=== PATIENT | female | born 1970 | race Hispanic/Latino ===

== ENCOUNTER 2016-04-13 10:47 | Inpatient (IN) | payer OTHER ==
--- NOTE | 2016-04-13 11:56 | Emergency Department Report ---
Chief Complaint: Dyspnea/Respdistress Stated Complaint: ANAM/LEG PAIN Time Seen by Provider: 04/13/16 11:43 - HPI History of Present Illness: 44-year-old female presents today with shortness of breath 1 week. Patient states her shortness of breath is worse when she lays down. Positive for history of CVA, anemia, accelerated heart rate, increased disease who states has been out of her medication for 8 months. Also complaining of right leg edema and pain 3 days. Positive for family history blood cough. Positive for fever on and off 4 months. - ROS Review of Systems: Per HPI - Exam Vital Signs: Vital Signs 04/13/16 10:50 Temperature 97.5 F L Pulse Rate 111 H Blood Pressure 134/99 O2 Sat by Pulse 100 Oximetry Physical Exam: General: 44-year-old female in mild to moderate distress. CV: Tachycardic. Regular rhythm. Lungs: Clear to auscultation bilaterally. Right lower extremity: Medial calf tenderness to palpation. No deformity or ecchymosis noted. Peripheral pulses intact. MSE screening note: Focused history and physical exam performed. Due to findings the following was ordered: ED Disposition for MSE Condition: Stable
--- NOTE | 2016-04-13 13:13 | XRay Report ---
ROUTINE CHEST, TWO VIEWS: HISTORY: Dyspnea. The trachea, heart, mediastinal contour, lung chauhan and bony thorax are unremarkable. IMPRESSION: No acute cardiopulmonary process.
[2016-04-13 13:32] LABS: Basophils % (Auto) 1.5 % (0.0-1.8); Eosinophils % (Auto) 2.3 % (0.0-4.3); Mean Corpuscular HGB Conc 30 % (30-34); Platelet Count 457 K/mm3 (140-440); Red Blood Count 4.42 M/mm3 (3.65-5.03); White Blood Count 11.9 K/mm3 (4.5-11.0)
[2016-04-13 13:33] LABS: Hematocrit 28.5 % (30.3-42.9); Hemoglobin 8.4 gm/dl (10.1-14.3); Mean Corpuscular Hemoglobin 19 pg (28-32); Mean Corpuscular Volume 65 fl (79-97)
[2016-04-13 13:42] LABS: INR 1.03 (0.87-1.13)
[2016-04-13 13:43] LABS: Partial Thromboplastin Time 22.7 Sec. (24.2-36.6)
[2016-04-13 14:16] LABS: Anion Gap 19 mmol/L; Blood Urea Nitrogen 6 mg/dL (7-17); Calcium 8.9 mg/dL (8.4-10.2); Carbon Dioxide 24 mmol/L (22-30); Chloride 104.3 mmol/L (98-107); Glucose 103 mg/dL (65-100); Potassium 4.9 mmol/L (3.6-5.0); Sodium 142 mmol/L (137-145)
[2016-04-13 14:22] LABS: Creatine Kinase 42 units/L (30-135)
[2016-04-13 14:23] LABS: Creatine Kinase MB < 1.0 ng/mL (0.0-4.0)
[2016-04-13] MEDS ORDERED: DILAUDID IV ONE (23:10)
[2016-04-13] MEDS ORDERED: ZOFRAN IV ONE (23:10)
[2016-04-13] MEDS ORDERED: NACL 0.9% 1000 ML 1,000 ML IV ONE (23:10)
[2016-04-13] MEDS ORDERED: CLEOCIN 600 MG/50 mL 50 ML IV ONE (23:10)
[2016-04-13] MEDS ORDERED: TESSALON PERLES PO ONE (23:11)
--- NOTE | 2016-04-13 23:33 | Emergency Department Report ---
ED Shortness of Breath HPI - General Chief Complaint: Dyspnea/Respdistress Stated Complaint: ANAM/LEG PAIN Time Seen by Provider: 04/13/16 11:43 Source: patient Mode of arrival: Ambulatory Limitations: No Limitations - History of Present Illness Initial Comments: 45-year-old female with a past medical history of obesity, anemia, CVA, and Graves' disease presents to the hospital complains of shortness of breath 1 week. Patient states she has had dyspnea on exertion. She complains of chest pressure when lying flat throughout the night. Just complains of right leg pain and swelling and expresses concern for DVT. Leg pain is constant, throbbing, rated 10/10 intensity. Worse with Palpation and movement. No alleviating factors. Patient has had a dry cough with intermittent fever times one month. Patient has not been on any medications 8 months. PMD: None - Related Data Home Medications Medication Instructions Recorded Confirmed Last Taken Docusate Sodium [Colace] 100 mg PO QDAY PRN 07/30/14 10/06/14 Unknown Promethazine [Phenergan TAB] 25 mg PO BID 10/06/14 10/06/14 10/06/14 Previous Rx's Medication Instructions Recorded Last Taken Type ALPRAZolam [Xanax TAB] 0.5 mg PO Q8HR #30 tablet 07/11/14 10/06/14 Rx Aspirin [Aspirin BABY CHEW TAB] 81 mg PO QDAY #30 tab.chew 07/11/14 10/06/14 Rx FLUoxetine [PROzac] 20 mg PO QDAY #30 capsule 07/11/14 10/06/14 Rx Ferrous Sulfate [Feosol 325 MG tab] 325 mg PO TID #90 tablet 07/11/14 10/06/14 Rx Omeprazole (Nf) [PriLOSEC (Nf)] 20 mg PO DAILY #30 capsule. 07/11/14 10/06/14 Rx Simvastatin [Zocor TAB] 20 mg PO QHS #30 tablet 07/11/14 10/05/14 Rx HYDROcodone/APAP 5-325 [[place] 1 each PO Q6HR PRN #20 tablet 07/30/14 10/06/14 Rx 5/325] medroxyPROGESTERone ACETATE 10 mg PO QDAY #10 tablet 07/30/14 10/06/14 Rx [Provera] traMADol [Ultram 50 MG tab] 50 mg PO Q6HR PRN #10 tablet 08/26/15 Unknown Rx Allergies Allergy/AdvReac Type Severity Reaction Status Date / Time tetanus & diphtheria toxoids Allergy Shortness Verified 06/12/13 22:55 [Tetanus&Diphtheria Toxoid] of Breath ED Review of Systems ROS: Stated complaint: ANAM/LEG PAIN Other details as noted in HPI Comment: All other systems reviewed and negative Other: Constitutional: No fevers chills or weight loss Eyes: No eye pain visual changes or discharge ENT: No ear pain or throat pain Neck: Denies pain Respiratory: As per HPI Cardiovascular: Chest pain with breathing report GI: Denies abdominal pain, nausea, vomiting, diarrhea : Denies dysuria Musculoskeletal: Right leg pain Skin: Right leg redness Neurologic: Denies headache, numbness, weakness Psychiatric: Denies suicidal ideation, hallucinations Hematological/lymphatic: Denies easy bruising, lymphadenopathy ED Past Medical Hx - Past Medical History Hx Hypertension: Yes Hx CVA: Yes (Apr 2014) Hx Heart Attack/AMI: Yes (June 2013) Hx Congestive Heart Failure: No Hx Diabetes: No Hx Asthma: No Hx COPD: No Additional medical history: TIA. Graves Disease - Surgical History Additional Surgical History: tonsillectomy, D&C, tubal,HEART CATH 2013 - Social History Smoking Status: Never Smoker Substance Use Type: None - Medications Home Medications: Home Medications Medication Instructions Recorded Confirmed Last Taken Type ALPRAZolam [Xanax TAB] 0.5 mg PO Q8HR #30 tablet 07/11/14 10/06/14 10/06/14 Rx Aspirin [Aspirin BABY CHEW TAB] 81 mg PO QDAY #30 tab.chew 07/11/14 10/06/14 Rx FLUoxetine [PROzac] 20 mg PO QDAY #30 capsule 07/11/14 10/06/14 10/06/14 Rx Ferrous Sulfate [Feosol 325 MG tab] 325 mg PO TID #90 tablet 07/11/14 10/06/14 10/06/14 Rx Omeprazole (Nf) [PriLOSEC (Nf)] 20 mg PO DAILY #30 capsule. 07/11/14 10/06/14 10/06/14 Rx Simvastatin [Zocor TAB] 20 mg PO QHS #30 tablet 07/11/14 10/06/1415 Rx Docusate Sodium [Colace] 100 mg PO QDAY PRN 07/30/14 10/06/14 Unknown History HYDROcodone/APAP 5-325 [[place] 1 each PO Q6HR PRN #20 tablet 07/30/14 10/06/14 Rx 5/325] medroxyPROGESTERone ACETATE 10 mg PO QDAY #10 tablet 07/30/14 10/06/14 10/06/14 Rx [Provera] Promethazine [Phenergan TAB] 25 mg PO BID 10/06/14 10/06/14 10/06/14 History traMADol [Ultram 50 MG tab] 50 mg PO Q6HR PRN #10 tablet 08/26/15 Unknown Rx ED Physical Exam - General Limitations: No Limitations - Other Other exam information: General: No limitations, patient is alert in no acute distress Head exam: Atraumatic, normocephalic Eyes exam: Normal appearance, pupils equal reactive to light, extraocular movements intact ENT: Moist mucous membrane, normal oropharynx Neck exam: Normal inspection, full range of motion, no meningismus nontender Respiratory exam: Clear to auscultation bilateral, no wheezes, rales, crackles, frequent dry cough noted on exam Cardiovascular: Normal rate and rhythm, normal heart sounds Abdomen: Soft, nondistended, and nontender, with normal bowel sounds, no rebound, or guarding Extremity: Full range of motion, pain and tenderness to right calf with 10 x 7 cm area of erythema and warmth. 2+ DP pulse Back: Normal Inspection, full range of motion, no tenderness Neurologic: Alert, oriented x3, cranial nerves intact, no motor or sensory deficit Psychiatric: normal affect, normal mood Skin: Warm, dry, intact ED Course Vital Signs 04/13/16 04/14/16 10:50 00:21 Temperature 97.5 F L 97.7 F Pulse Rate 111 H 95 H Respiratory 15 Rate Blood Pressure 134/99 Blood Pressure 124/80 [Left] O2 Sat by Pulse 100 99 Oximetry - Reevaluation(s) Reevaluation #1: 04/14/16 01:55 Pain improved in ed. Given dilaudid, zofran, ns, clinda, and tessalon perles 04/14/16 01:55 ED Medical Decision Making - Lab Data Result diagrams: 04/13/16 13:09 04/13/16 13:09 Lab Results 04/13/16 04/13/16 04/13/16 Range/Units 13:09 13:09 13:09 WBC 11.9 H (4.5-11.0) K/mm3 RBC 4.42 (3.65-5.03) M/mm3 Hgb 8.4 L (10.1-14.3) gm/dl Hct 28.5 L (30.3-42.9) % MCV 65 L (79-97) fl MCH 19 L (28-32) pg MCHC 30 (30-34) % RDW 20.0 H (13.2-15.2) % Plt Count 457 H (140-440) K/mm3 Lymph % (Auto) 28.9 (13.4-35.0) % [place] % (Auto) 3.4 (0.0-7.3) % Eos % (Auto) 2.3 (0.0-4.3) % Baso % (Auto) 1.5 (0.0-1.8) % Lymph # 3.4 (1.2-5.4) K/mm3 [place] # 0.4 (0.0-0.8) K/mm3 Eos # 0.3 (0.0-0.4) K/mm3 Baso # 0.2 H (0.0-0.1) K/mm3 Seg Neutrophils % 63.9 (40.0-70.0) % Seg Neutrophils # 7.6 (1.8-7.7) K/mm3 PT 13.4 (12.2-14.9) Sec. INR 1.03 (0.87-1.13) APTT 22.7 L (24.2-36.6) Sec. D-Dimer (0-234) ng/mlDDU Sodium 142 (137-145) mmol/L Potassium 4.9 (3.6-5.0) mmol/L Chloride 104.3 (98-107) mmol/L Carbon Dioxide 24 (22-30) mmol/L Anion Gap 19 mmol/L BUN 6 L (7-17) mg/dL Creatinine 0.8 (0.7-1.2) mg/dL Estimated GFR > 60 ml/min BUN/Creatinine Ratio 7.50 % Glucose 103 H (65-100) mg/dL Calcium 8.9 (8.4-10.2) mg/dL Total Creatine Kinase (30-135) units/L CK-MB (CK-2) (0.0-4.0) ng/mL CK-MB (CK-2) Rel Index (0-4) Troponin T (0.00-0.029) ng/mL 04/13/16 04/13/16 Range/Units 13:09 13:09 WBC (4.5-11.0) K/mm3 RBC (3.65-5.03) M/mm3 Hgb (10.1-14.3) gm/dl Hct (30.3-42.9) % MCV (79-97) fl MCH (28-32) pg MCHC (30-34) % RDW (13.2-15.2) % Plt Count (140-440) K/mm3 Lymph % (Auto) (13.4-35.0) % [place] % (Auto) (0.0-7.3) % Eos % (Auto) (0.0-4.3) % Baso % (Auto) (0.0-1.8) % Lymph # (1.2-5.4) K/mm3 [place] # (0.0-0.8) K/mm3 Eos # (0.0-0.4) K/mm3 Baso # (0.0-0.1) K/mm3 Seg Neutrophils % (40.0-70.0) % Seg Neutrophils # (1.8-7.7) K/mm3 PT (12.2-14.9) Sec. INR (0.87-1.13) APTT (24.2-36.6) Sec. D-Dimer 560.06 H (0-234) ng/mlDDU Sodium (137-145) mmol/L Potassium (3.6-5.0) mmol/L Chloride (98-107) mmol/L Carbon Dioxide (22-30) mmol/L Anion Gap mmol/L BUN (7-17) mg/dL Creatinine (0.7-1.2) mg/dL Estimated GFR ml/min BUN/Creatinine Ratio % Glucose (65-100) mg/dL Calcium (8.4-10.2) mg/dL Total Creatine Kinase 42 (30-135) units/L CK-MB (CK-2) < 1.0 (0.0-4.0) ng/mL CK-MB (CK-2) Rel Index 2.3 (0-4) Troponin T < 0.010 (0.00-0.029) ng/mL - EKG Data -: EKG Interpreted by Me (sinus tach 114) - Radiology Data Radiology results: report reviewed Cxr: naf CT angiogram chest: Single very small linear nonocclusive PE in the subsegmental right lower lobe pulmonary artery branch. Lungs show patchy chronic fibrotic changes or scarring in the posterior left mid and lower lung segment similar to prior exam. Mild atelectasis of the right lobe. New ill- defined partial focal density in the anterior right middle lung with uncertain significance. Small focal infiltrate versus scarring versus atelectasis. - Medical Decision Making Plan to admit patient to the hospital. She has a very small pulmonary embolism with a negative DVT exam of the right leg. Patient, of antibiotics for focal cellulitis given negative Doppler. Patient received Lovenox and will be admitted to the hospital. Heart rate improved below 100 with IV fluids and pain control - Differential Diagnosis PE, bronchitis, pneumonia, cellulitis, DVT, contusion Critical Care Time: No Critical care attestation.: If time is entered above; I have spent that time in minutes in the direct care of this critically ill patient, excluding procedure time. ED Disposition Clinical Impression: Anemia, Pulmonary embolism, Cellulitis of right lower leg, Obesity (BMI 35.0- 39.9 without comorbidity), Pulmonary infiltrate Disposition: OP ADMITTED IP TO THIS HOSP Is pt being admited?: Yes Condition: Stable Time of Disposition: 01:52 (Dr lisa/hosp)
[2016-04-13] MEDS ORDERED: NACL ONE (23:43)
--- NOTE | 2016-04-14 01:40 | Cat Scan Report ---
FINAL REPORT PROCEDURE: CT ANGIO CHEST TECHNIQUE: Computerized axial tomographic angiography of the chest and pulmonary arteries was performed after the IV injection of iodinated nonionic contrast. The image data was postprocessed using maximum intensity projection (MIP) and 2-dimensional multiplanar reformatted (MPR) techniques. The examination is specifically tailored to the evaluation of the pulmonary arteries per clinical request. HISTORY: Shortness of breath. Elevated D-dimer. Attention for pulmonary embolus. Short of breath 786.09, chest pain 786.50 COMPARISON: Prior chest CTA exam of July 30, 2014 FINDINGS: Heart and pericardium: Normal. Thoracic aorta: Normal. Pulmonary vasculature: There is a single small nonocclusive linear filling defect in one subsegmental pulmonary artery branch in the right lower lobe. This is consistent with a small nonobstructive pulmonary embolus. This is seen on images 57-67 of series 3. The remainder the pulmonary arterial tree is clear.. Lymph nodes: There are few nonspecific less than 1 centimeter mediastinal lymph nodes noted. Lungs: There is some mild patchy chronic interstitial scarring in the posterior left mid and lower lung similar to prior exam. However the patchy ground-glass density in the left upper lobe seen on the prior scan is not evident on this current scan. There is mild atelectasis in posterior right lower lobe. There is a nonspecific patchy partially focal somewhat irregular density in the anterior right midlung centered on image 51 of series 3. This is new. This is nonspecific but could be an area of scarring or atelectasis or small focal infiltrate. However its significance is uncertain. Pleural space: No effusion, thickening, or pneumothorax. Musculoskeletal structures: No significant abnormality. Upper abdominal structures: Slightly heterogenous appearing spleen is probably due to contrast flux. The limited visualized structures of the very upper abdomen seen on the lower part of this chest scan show no CT abnormality otherwise. IMPRESSION: 1. There is a single very small linear nonocclusive pulmonary embolus in one subsegmental right lower lobe pulmonary artery branch. The remainder the pulmonary arterial tree appears normal. 2. There is no CT evidence of thoracic aortic dissection. 3. Lungs show some patchy chronic fibrotic change or scarring in the posterior left mid and lower lung similar to prior exam. There is mild atelectasis right lower lobe. There is a small somewhat ill-defined but partially focal density in the anterior right mid lung new from prior exam. The significance of this is uncertain. This could be a small focal infiltrate or some scarring or small focal area of atelectasis. A follow-up chest CT scan in several months time recommended to make sure this resolves and or remains stable and develops no unfavorable change which might indicate a more aggressive process.
[2016-04-14] MEDS ORDERED: LOVENOX SUB-Q ONE (01:46)
--- NOTE | 2016-04-14 03:19 | History and Physical Report ---
History of Present Illness Date of examination: 04/14/16 History of present illness: 45-year-old man with a history of CVA, Graves' disease, obesity comes emergency room with complaint of right leg pain which started 2 days ago. Also complaining of chest pain in the anterior chest. She stated that she felt as if her chest is collapsing, this has been going on since December. The pain is constant, intensity, 7/10, no radiation and she cannot identify exacerbating or relieving factors. Symptoms associated with shortness of breath. Patient also complaining of a cough since December. She has not taken her medication in 8 months Patient denies chest pain, palpitation, abdominal pain, hematochezia, dysuria, frequency, focal weakness, dysarthria, fever chills, polydipsia polyuria, hot or cold intolerance, easy bruisability, or rash or bleeding from mucosal membrane, rhinorrhea, epistaxis, earache, tinnitus, blurry vision, eye discharge , anxiety, depression. Other review of systems negative PAST SURGICAL HISTORY: Tonsillectomy, tubal ligation SOCIAL HISTORY: Pack a day, no alcohol or drugs FAMILY HISTORY: Hypertension Medications and Allergies Allergies Allergy/AdvReac Type Severity Reaction Status Date / Time tetanus & diphtheria toxoids Allergy Shortness Verified 06/12/13 22:55 [Tetanus&Diphtheria Toxoid] of Breath Home Medications Medication Instructions Recorded Confirmed Last Taken Type ALPRAZolam [Xanax TAB] 0.5 mg PO Q8HR #30 tablet 07/11/14 10/06/14 10/06/14 Rx Aspirin [Aspirin BABY CHEW TAB] 81 mg PO QDAY #30 tab.chew 07/11/14 10/06/14 Rx FLUoxetine [PROzac] 20 mg PO QDAY #30 capsule 07/11/14 10/06/14 10/06/14 Rx Ferrous Sulfate [Feosol 325 MG tab] 325 mg PO TID #90 tablet 07/11/14 10/06/14 10/06/14 Rx Omeprazole (Nf) [PriLOSEC (Nf)] 20 mg PO DAILY #30 capsule. 07/11/14 10/06/14 10/06/14 Rx Simvastatin [Zocor TAB] 20 mg PO QHS #30 tablet 07/11/14 10/06/14 10/05/14 Rx Docusate Sodium [Colace] 100 mg PO QDAY PRN 07/30/14 10/06/14 Unknown History HYDROcodone/APAP 5-325 [[place] 1 each PO Q6HR PRN #20 tablet 07/30/14 10/06/14 Rx 5/325] medroxyPROGESTERone ACETATE 10 mg PO QDAY #10 tablet 07/30/14 10/06/14 10/06/14 Rx [Provera] Promethazine [Phenergan TAB] 25 mg PO BID 10/06/14 10/06/14 10/06/14 History traMADol [Ultram 50 MG tab] 50 mg PO Q6HR PRN #10 tablet 08/26/15 Unknown Rx Active Meds: Active Medications Nicotine (Habitrol) 21 mg TD QDAY [place] Exam - Physical Exam Narrative exam: Gen. appearance: Patient lying in bed, no apparent distress HEENT: Normocephalic, atraumatic, pupils equally round and reactive to light, extraocular movement intact, and no sclericterus,. No JVD or thyromegaly or nodule,neck supple, no carotid bruit ,mucous membranes moist, no exudate or erythema Heart: S1, S2, regular rate and rhythm Lungs: Clear to auscultation bilaterally, breathing comfortable Abdomen: Positive bowel sounds, nontender, nondistended, no organomegaly Extremity: Medial right leg, tender, erythematous, swollen, left leg No edema, cyanosis, clubbing Skin: No rash, nodules, warm, dry Neuro: Oriented 3, cranial nerves II-12 intact, speech is fluent, motor and sensory intact - Constitutional Vitals: Temp Pulse Resp BP Pulse Ox 97.7 F 95 H 15 124/80 99 04/14/16 00:21 04/14/16 00:21 04/14/16 00:21 04/14/16 00:21 04/14/16 00:21 Results - Labs CBC & Chem 7: 04/13/16 13:09 04/13/16 13:09 Labs: Abnormal lab results 04/13/16 04/13/16 04/13/16 Range/Units 13:09 13:09 13:09 WBC 11.9 H (4.5-11.0) K/mm3 Hgb 8.4 L (10.1-14.3) gm/dl Hct 28.5 L (30.3-42.9) % MCV 65 L (79-97) fl MCH 19 L (28-32) pg RDW 20.0 H (13.2-15.2) % Plt Count 457 H (140-440) K/mm3 Baso # 0.2 H (0.0-0.1) K/mm3 APTT 22.7 L (24.2-36.6) Sec. D-Dimer (0-234) ng/mlDDU BUN 6 L (7-17) mg/dL Glucose 103 H (65-100) mg/dL 04/13/16 Range/Units 13:09 WBC (4.5-11.0) K/mm3 Hgb (10.1-14.3) gm/dl Hct (30.3-42.9) % MCV (79-97) fl MCH (28-32) pg RDW (13.2-15.2) % Plt Count (140-440) K/mm3 Baso # (0.0-0.1) K/mm3 APTT (24.2-36.6) Sec. D-Dimer 560.06 H (0-234) ng/mlDDU BUN (7-17) mg/dL Glucose (65-100) mg/dL - Imaging and Cardiology EKG: image reviewed Chest x-ray: image reviewed Assessment and Plan Doppler negative for DVT Acute pulmonary emboli Fibrosis of the lung versus other process Cellulitis of the right leg Cough 3 months Graves' disease History of skin Morbid obesity Admit to medicine Start full dose Lovenox, consult pulmonary Start IV Rocephin Continue appropriate outpatient medication Dvt prophylaxis initiated
[2016-04-14] MEDS ORDERED: MILK OF MAGNESIA PO PRN (04:04)
[2016-04-14] MEDS ORDERED: PERCOCET 5/325 PO PRN (04:04)
[2016-04-14] MEDS ORDERED: ZOFRAN IV PRN (04:04)
[2016-04-14] MEDS ORDERED: DULCOLAX PR PRN (04:04)
[2016-04-14] MEDS ORDERED: TYLENOL PO PRN ×2 (04:04→13:36)
--- NOTE | 2016-04-14 10:44 | Vascular Lab Report ---
Right Lower Extremity Venous Duplex Study: Reason for Exam: Pain. Comments on the Right: All veins visualized are freely compressible without evidence of internal echogenicity. Flow is spontaneous and phasic throughout. No evidence of acute or chronic thrombus is seen in any of the vessels visualized. Comments on the Left: A limited duplex study was done of the proximal veins of the left lower extremity. All veins visualized are freely compressible without evidence of internal echogenicity. Flow is spontaneous and phasic throughout. No evidence of acute or chronic thrombus is seen in any of the vessels visualized. Impression: No evidence of acute or chronic deep venous thrombosis in the right lower extremity.
[2016-04-14] MEDS ORDERED: PEPCID ONE (11:07)
[2016-04-14] MEDS ORDERED: ZOFRAN ONE (11:07)
[2016-04-14] MEDS ORDERED: TYLENOL ONE (11:07)
--- NOTE | 2016-04-14 13:15 | Admit Criteria Form ---
Admission Criteria Documentation: PULMONARY EMBOLISM Clinical Indications for Admission to Inpatient Care (Place 'X' for any and all applicable criteria): Admission is indicated by ANY ONE of the following 1,2,3,4,5 [ ]I. Onset of hypoxia [ ]II. Hemodynamic instability 5 [ ]III. Massive pulmonary embolism (eg, acute embolism causing sustained hypotension, pulselessness, or bradycardia)5 [ ]IV. Need for IV narcotics (eg, to treat dyspnea) [ ]V. Current use of home oxygen therapy [ ]. Active bleeding [ ]VII. Recent surgery [ ]VIII. Active peptic ulcer disease [ ]IX. Documented extensive thrombosis (eg, clot in vena cava or above iliofemoral bifurcation) [ ]X. Embolism while on anticoagulation [ ]XI. 6 [X ]XII. Appropriate monitoring and therapy cannot be provided in home or outpatient setting. [ ]XIII. Systemic or catheter-directed thrombolysis 5,7 [ ]XIV. Catheter embolectomy and fragmentation 6 [ ]XV. Vena cava filter placement5 [ ]XVI. Severely diminished cardiopulmonary reserve (eg, cor pulmonale, pulmonary hypertension) [ ]XVII. Severe renal failure (eg, GFR less than 30 mL/min/1.73m2 (0.5 mL/sec/ 1.73m2)) [ ]XVIII.Right ventricular dysfunction (eg, by echocardiogram) 6,11 [ ]XIX. Positive cardiac biomarker (eg, troponin T or I > 0.1 ng/mL (mcg/L), highly sensitive troponin I assay greater than 0.014 ng/mL (mcg/L), BNP or NT proBNP > assay threshold)5,8,9 [ ]XX. Known clotting abn or def (eg, liver disease, antithrombin III, protein C, or protein S abnormality) [ ]XXI. History of heparin-induced thrombocytopenia [X ]XXII. Inpatient admission required rather than observation care (Also use Pulmonary Embolism: Observation Care guideline as appropriate) because of ANY ONE of the following: [ ] a) Significant autoimmune (thrombocytopenia) or coagulopathic reaction occurs in response to anticoagulation [ ] b) Respiratory symptoms (eg, tachypnea, dyspnea) that are severe or persistent [ X] c) Other condition, treatment, or monitoring requiring inpatient admission Extended stay beyond goal length of stay may be needed for 3,28 [ ]a) Hemorrhage or recent surgery [ ]b) Recurrent thromboembolism [ ]c) Persistent hypoxemia [ ]d) Heparin-induced thrombocytopenia The original [facility] [employer] content created by [facility] [employer] has been revised. The portions of the content which have been revised are identified through the use of italic text or in bold, and [facility] has neither reviewed nor approved the modified material. All other unmodified content is copyright [facility] [employer]. Please see references footnoted in the original [facility] edition 2016 Admission Criteria Met: Yes
[2016-04-14] MEDS ORDERED: LOVENOX SUB-Q SCH (13:30)
[2016-04-14] MEDS: HABITROL TD SCH ×2 (13:36→14:56)
[2016-04-14] MEDS: PEPCID PO SCH ×2 (13:38→21:15)
[2016-04-14] MEDS ORDERED: ROCEPHIN/NS 1 GM/50 ML 1 GM/50 ML BAG IV SCH (14:30)
[2016-04-14] MEDS ORDERED: FIORICET PO PRN (14:46)
[2016-04-14] MEDS ORDERED: COLACE PO PRN (14:48)
[2016-04-14] MEDS: PERCOCET 5/325 PO PRN ×2 (15:45→21:15)
[2016-04-14] MEDS: PROzac PO SCH (16:02)
[2016-04-14] MEDS: BABY ASPIRIN PO SCH (16:02)
[2016-04-14] MEDS: CLEOCIN 900 MG/50 mL 900 MG/50 ML BAG IV SCH ×2 (17:20→22:34)
--- NOTE | 2016-04-14 18:14 | Consultation ---
History of Present Illness Consult date: 04/14/16 Requesting physician: HARPER YEBOAH Reason for consult: pulmonary embolism History of present illness: 45 y/o morbidly obese white female who presented to the ED with multiple complaints. What lead to CT of chest was leg pain and concern for DVT with shortness of breath and center located chest pain. CTA reveals a small subsegmental PE in the right lower lobe. Pulmonary consulted. Per patient Grandfather, mother and maternal aunts, all with "blood disorders". She has never had clot before. Remainder is negative. Past History Past Medical History: other (anxiety) Social history: smoking (1pack per day) Family history: other ("blood disorders") Medications and Allergies Allergies Allergy/AdvReac Type Severity Reaction Status Date / Time tetanus & diphtheria toxoids Allergy Shortness Verified 06/12/13 22:55 [Tetanus&Diphtheria Toxoid] of Breath Home Medications Medication Instructions Recorded Confirmed Last Taken Type ALPRAZolam [Xanax TAB] 0.5 mg PO Q8HR #30 tablet 07/11/14 04/14/16 10/06/14 Rx Aspirin [Aspirin BABY CHEW TAB] 81 mg PO QDAY #30 tab.chew 07/11/14 04/14/16 Rx FLUoxetine [PROzac] 20 mg PO QDAY #30 capsule 07/11/14 04/14/16 10/06/14 Rx Ferrous Sulfate [Feosol 325 MG tab] 325 mg PO TID #90 tablet 07/11/14 04/14/16 10/06/14 Rx Omeprazole (Nf) [PriLOSEC (Nf)] 20 mg PO DAILY #30 capsule. 07/11/14 04/14/16 10/06/14 Rx Simvastatin [Zocor TAB] 20 mg PO QHS #30 tablet 07/11/14 04/14/16 10/05/14 Rx Docusate Sodium [Colace] 100 mg PO QDAY PRN 07/30/14 04/14/16 Unknown History HYDROcodone/APAP 5-325 [[place] 1 each PO Q6HR PRN #20 tablet 07/30/14 04/14/16 Rx 5/325] medroxyPROGESTERone ACETATE 10 mg PO QDAY #10 tablet 07/30/14 04/14/16 10/06/14 Rx [Provera] Promethazine [Phenergan TAB] 25 mg PO BID 10/06/14 04/14/16 10/06/14 History traMADol [Ultram 50 MG tab] 50 mg PO Q6HR PRN #10 tablet 08/26/15 04/14/16 Unknown Rx Active Meds: Active Medications Acetaminophen (Tylenol) 650 mg PO Q6H PRN PRN Reason: Pain MILD(1-3)/Fever >100.5/CRUZ Acetaminophen/Butalbital/Caffeine (Fioricet) 2 tab PO Q4H PRN PRN Reason: Headache Aspirin (Baby Aspirin) 81 mg PO QDAY [facility] Last Admin: 04/14/16 16:02 Dose: 81 mg Bisacodyl (Dulcolax) 10 mg NE QDAY PRN PRN Reason: Constipation unrelieved by MOM Docusate Sodium (Colace) 100 mg PO QDAY PRN PRN Reason: Constipation Enoxaparin Sodium (Lovenox) 120 mg 1 mg/kg (120 mg) SUB-Q Q12HR [facility] Famotidine (Pepcid) 20 mg PO BID [facility] Last Admin: 04/14/16 13:38 Dose: Not Given Ferrous Sulfate (Feosol) 325 mg PO TID [facility] Fluoxetine HCl (Prozac) 20 mg PO QDAY [facility] Last Admin: 04/14/16 16:02 Dose: 20 mg Clindamycin HCl (Cleocin 900 Mg/50 Ml) 900 mg in 50 mls @ 50 mls/hr IV Q8HR [facility] PRN Reason: Protocol Last Admin: 04/14/16 17:20 Dose: 50 mls/hr Magnesium Hydroxide (Milk Of Magnesia) 30 ml PO Q4H PRN PRN Reason: Constipation Nicotine (Habitrol) 21 mg TD QDAY [facility] Last Admin: 04/14/16 14:56 Dose: 21 mg Ondansetron HCl (Zofran) 4 mg IV Q4H PRN PRN Reason: Nausea And Vomiting Oxycodone/Acetaminophen (Percocet 5/325) 2 tab PO Q6H PRN PRN Reason: Pain, Moderate (4-6) Last Admin: 04/14/16 15:45 Dose: 2 tab Simvastatin (Zocor) 20 mg PO QHS [facility] Review of Systems All systems: negative Physical Examination Vital signs: Vital Signs Temp Pulse BP Pulse Ox 97.5 F L 111 H 134/99 100 04/13/16 10:50 04/13/16 10:50 04/13/16 10:50 04/13/16 10:50 General appearance: no acute distress, alert Eyes: non-icteric ENT: other (very poor dentition) Neck: supple, other (large in circumference) Effort: normal Ascultation: Bilateral: diminished breath sounds (secondary to body habitus but clear) Percussion: Bilateral: not dull Tactile fremitus: Bilateral: normal Cardiovascular: regular rate and rhythm Gastrointestinal: other (obese) other (flat affect) Results - Laboratory Findings CBC and BMP: 04/13/16 13:09 04/13/16 13:09 PT/INR, D-dimer PT 13.4 Sec. (12.2-14.9) 04/13/16 13:09 INR 1.03 (0.87-1.13) 04/13/16 13:09 D-Dimer 560.06 ng/mlDDU (0-234) H 04/13/16 13:09 - Diagnostic Findings CT scan - chest: image reviewed Assessment and Plan 45 y/o obese female with small subsegmental PE. 1. Most likely current PE is not the cause of chest pain. 2. Recommend Heme consult and hypercoag work up, especially with family history 3. Weight loss 4. Smoking cessation 5. Currently asymptomatic from a pulmonary standpoint. Does not require oxygen. Will sign off for now. Call if questions
[2016-04-14] MEDS: LOVENOX SUB-Q SCH (21:15)
[2016-04-14] MEDS: FEOSOL PO SCH (21:15)
[2016-04-14] MEDS: ZOCOR PO SCH (21:15)
[2016-04-14] MEDS: ZOFRAN IV PRN (21:16)
[2016-04-15] MEDS: CLEOCIN 900 MG/50 mL 900 MG/50 ML BAG IV SCH ×3 (05:54→22:02)
[2016-04-15 08:05] LABS: Basophils % (Auto) 0.4 % (0.0-1.8); Eosinophils % (Auto) 4.7 % (0.0-4.3); Hematocrit 23.2 % (30.3-42.9); Hemoglobin 6.9 gm/dl (10.1-14.3); Mean Corpuscular HGB Conc 30 % (30-34); Platelet Count 314 K/mm3 (140-440); Red Blood Count 3.59 M/mm3 (3.65-5.03); Red Cell Distribution Width 19.9 % (13.2-15.2); White Blood Count 6.3 K/mm3 (4.5-11.0)
[2016-04-15 08:08] LABS: Mean Corpuscular Hemoglobin 19 pg (28-32); Mean Corpuscular Volume 65 fl (79-97)
[2016-04-15 08:42] LABS: Anion Gap 18 mmol/L; Blood Urea Nitrogen 6 mg/dL (7-17); Carbon Dioxide 25 mmol/L (22-30); Chloride 97.7 mmol/L (98-107); Glucose 113 mg/dL (65-100); Potassium 4.3 mmol/L (3.6-5.0); Sodium 136 mmol/L (137-145)
[2016-04-15] MEDS: HABITROL TD SCH (10:11)
[2016-04-15] MEDS: PROzac PO SCH (10:12)
[2016-04-15] MEDS: FEOSOL PO SCH ×3 (10:12→22:03)
[2016-04-15] MEDS: PEPCID PO SCH ×2 (10:12→22:03)
[2016-04-15] MEDS: BABY ASPIRIN PO SCH (10:12)
[2016-04-15] MEDS: ZOFRAN IV PRN ×2 (10:12→22:03)
[2016-04-15] MEDS: LOVENOX SUB-Q SCH ×2 (10:12→22:02)
[2016-04-15] MEDS: PERCOCET 5/325 PO PRN ×2 (10:13→22:03)
--- NOTE | 2016-04-15 19:15 | Progress Note ---
Assessment and Plan Assessment and plan: 1. Small PE 2. cellulitis iron deficient anemia old stroke morbid obesity History Interval history: no SOB at rest leg pain improved Hospitalist Physical - Constitutional Vitals: Temp Pulse Resp BP Pulse Ox 97.7 F 80 20 126/79 97 04/15/16 16:00 04/15/16 18:33 04/15/16 16:00 04/15/16 16:00 04/15/16 16:00 Results - Labs CBC & Chem 7: 04/15/16 06:31 04/15/16 06:31 Labs: Laboratory Last Values WBC 6.3 K/mm3 (4.5-11.0) 04/15/16 06:31 RBC 3.59 M/mm3 (3.65-5.03) L 04/15/16 06:31 Hgb 6.9 gm/dl (10.1-14.3) L 04/15/16 06:31 Hct 23.2 % (30.3-42.9) L 04/15/16 06:31 MCV 65 fl (79-97) L 04/15/16 06:31 MCH 19 pg (28-32) L 04/15/16 06:31 MCHC 30 % (30-34) 04/15/16 06:31 RDW 19.9 % (13.2-15.2) H 04/15/16 06:31 Plt Count 314 K/mm3 (140-440) 04/15/16 06:31 Lymph % (Auto) 48.1 % (13.4-35.0) H 04/15/16 06:31 [place] % (Auto) 7.0 % (0.0-7.3) 04/15/16 06:31 Eos % (Auto) 4.7 % (0.0-4.3) H 04/15/16 06:31 Baso % (Auto) 0.4 % (0.0-1.8) 04/15/16 06:31 Lymph # 3.0 K/mm3 (1.2-5.4) 04/15/16 06:31 [place] # 0.4 K/mm3 (0.0-0.8) 04/15/16 06:31 Eos # 0.3 K/mm3 (0.0-0.4) 04/15/16 06:31 Baso # 0.0 K/mm3 (0.0-0.1) 04/15/16 06:31 Seg Neutrophils % 39.8 % (40.0-70.0) L 04/15/16 06:31 Seg Neutrophils # 2.5 K/mm3 (1.8-7.7) 04/15/16 06:31 PT 13.4 Sec. (12.2-14.9) 04/13/16 13:09 INR 1.03 (0.87-1.13) 04/13/16 13:09 APTT 22.7 Sec. (24.2-36.6) L 04/13/16 13:09 D-Dimer 560.06 ng/mlDDU (0-234) H 04/13/16 13:09 Sodium 142 mmol/L (137-145) 04/13/16 13:09 Potassium 4.9 mmol/L (3.6-5.0) 04/13/16 13:09 Chloride 104.3 mmol/L (98-107) 04/13/16 13:09 Carbon Dioxide 25 mmol/L (22-30) 04/15/16 06:31 Anion Gap 19 mmol/L 04/13/16 13:09 BUN 6 mg/dL (7-17) L 04/15/16 06:31 Creatinine 0.8 mg/dL (0.7-1.2) 04/15/16 06:31 Estimated GFR > 60 ml/min 04/15/16 06:31 BUN/Creatinine Ratio 7.50 % 04/15/16 06:31 Glucose 113 mg/dL (65-100) H 04/15/16 06:31 Calcium 8.0 mg/dL (8.4-10.2) L 04/15/16 06:31 Total Creatine Kinase 42 units/L (30-135) 04/13/16 13:09 CK-MB (CK-2) < 1.0 ng/mL (0.0-4.0) 04/13/16 13:09 CK-MB (CK-2) Rel Index 2.3 (0-4) 04/13/16 13:09 Troponin T < 0.010 ng/mL (0.00-0.029) 04/13/16 13:09
[2016-04-15] MEDS: ZOCOR PO SCH (22:03)
[2016-04-16] MEDS: CLEOCIN 900 MG/50 mL 900 MG/50 ML BAG IV SCH ×2 (05:38→13:21)
[2016-04-16] MEDS ORDERED: NACL 0.9% 500 ML 500 ML IV ONE (08:50)
[2016-04-16] MEDS: PROzac PO SCH (09:09)
[2016-04-16] MEDS: FEOSOL PO SCH (09:09)
[2016-04-16] MEDS: PERCOCET 5/325 PO PRN (09:09)
[2016-04-16] MEDS: PEPCID PO SCH (09:09)
[2016-04-16] MEDS: BABY ASPIRIN PO SCH (09:09)
[2016-04-16] MEDS: ZOFRAN IV PRN (09:09)
[2016-04-16] MEDS: LOVENOX SUB-Q SCH (09:10)
[2016-04-16] MEDS: HABITROL TD SCH (09:10)
--- NOTE | 2016-04-16 10:29 | Discharge Summary ---
Providers - Providers Date of Admission: 04/14/16 03:08 Date of discharge: 04/16/16 Attending physician: PREM DIAMOND CONSULTS: Pulmonary Primary care physician: CURB [facility] [employer] Hospitalization Reason for admission: SOB, leg pain Condition: Stable Pertinent studies: CXT CTA chest Doppler LE Disposition: DISCHARGED TO HOME OR SELFCARE Time spent for discharge: 40 min Core Measure Documentation - Palliative Care Palliative Care/ Comfort Measures: Not Applicable - Core Measures Any of the following diagnoses?: DVT/PE - VTE Discharge Requirements Deep Vein Thrombosis/Pulmonary Embolism Present on Admission: Yes Has pt received <5 days of overlap therapy or INR<2.0: Yes Anticoagulant overlap therapy prescribed at discharge: No Contraindication No Overlap Therapy order at DC: Not Indicated Exam - Physical Exam Narrative exam: Patient seen and examined: - Constitutional Vitals: Temp Pulse Resp BP Pulse Ox 97.4 F L 95 H 18 131/76 94 04/16/16 08:54 04/16/16 08:54 04/16/16 08:54 04/16/16 08:54 04/16/16 08:54 General appearance: Present: no acute distress, obese - EENT Eyes: Present: PERRL, EOM intact. Absent: scleral icterus, conjunctival injection ENT: clear oral mucosa, poor dentition - Respiratory Respiratory effort: normal Respiratory: bilateral: CTA, negative: rales, rhonchi, wheezing - Cardiovascular Rhythm: regular Heart Sounds: Present: S1 & S2. Absent: systolic murmur - Extremities Extremities: no ischemia - Abdominal General gastrointestinal: Present: soft, non-tender, non-distended, normal bowel sounds - Integumentary Integumentary: Present: warm, dry, pale. Absent: rash - Psychiatric Psychiatric: cooperative - Neurologic Neurologic: CNII-XII intact, no focal deficits Plan Activity: advance as tolerated, fall precautions Diet: low cholesterol, low salt Additional Instructions: F/u with your fitting supervisor and an claims customer service representative ( hemorrhoids/menorrhagia with subsequent iron deficient anemia) Follow up with: PRIMARY CAREMD [Primary Care Provider] - 3-5 Days [facility] [Outside] - 7 Days JENNIFER ERAZO MD [Staff Physician] - 14 Days (f/u hypercoag w/u ) Prescriptions: Simvastatin [Zocor TAB] 20 mg PO QHS #30 tablet Apixaban [Eliquis] 5 mg PO Q12HR #60 tablet Aspirin [Aspirin BABY CHEW TAB] 81 mg PO QDAY #30 tab.chew Butalb/Acetamin/Caff 50-325-40 [Fioricet] 2 tab PO Q4H PRN #20 tablet PRN Reason: Headache Clindamycin [Clindamycin CAP] 600 mg PO TID #42 capsule Docusate Sodium [Colace CAP] 100 mg PO QDAY PRN #30 capsule PRN Reason: Constipation Ferrous Sulfate [Feosol 325 MG tab] 325 mg PO TID #90 tablet FLUoxetine [PROzac] 20 mg PO QDAY #30 capsule Pending Studies transfuse 1 unit PRBC
[2016-04-16] MEDS ORDERED: ELIQUIS PO SCH ×2 (10:30→22:00)
[2016-04-16 18:05] VITALS: BP 111/65
== END 2016-04-16 23:05 | disposition home or self-care (01) | DRG 176 ==
LOC: ED 10:47 → 4A 04-14 03:08
PROVIDERS: ADMIT Internal Medicine; ATTEND Internal Medicine
DX: I26.99 Other pulmonary embolism without acute cor pulmonale (principal); L03.115 Cellulitis of right lower limb; Z68.42 Body mass index [BMI] 45.0-49.9, adult; D50.9 Iron deficiency anemia, unspecified; E66.01 Morbid (severe) obesity due to excess calories; E05.00 Thyrotoxicosis with diffuse goiter without thyrotoxic crisis or storm; J84.10 Pulmonary fibrosis, unspecified; I25.2 Old myocardial infarction; Z79.899 Other long term (current) drug therapy; Z79.82 Long term (current) use of aspirin; Z98.890 Other specified postprocedural states; Z82.49 Family history of ischemic heart disease and other diseases of the circulatory system; Z98.51 Tubal ligation status; Z88.7 Allergy status to serum and vaccine; Z86.73 Personal history of transient ischemic attack (TIA), and cerebral infarction without residual deficits
CPT/HCPCS: 36415; 71020; 71275; 80048; 82550; 82553; 83516; 84484; 85025; 85301; 85305; 85307; 85379; 85610; 85613; 85730; 86147; 86850; 86900; 86901; 86920; 93005; 93010; 96365; 96372; 96375; J0696; J1170; J1650; J2405; J7030; J7040; P9016; Q9967